=== PATIENT | male | born 1980 | race Caucasian/White ===

== ENCOUNTER 2021-06-20 12:44 | Emergency (ER) | payer OTHER, SELFPAY ==
[2021-06-20 12:56] VITALS: BP 134/98; PULSE 79; RESP 16; TEMP 36.4; O2SAT 98
--- NOTE | 2021-06-20 13:24 | ED.EAR ---
HPI - Ear Problem General Chief complaint: Ear Stated complaint: Ear Pain Time Seen by Provider: 06/20/21 13:18 Source: patient and RN notes reviewed Mode of arrival: ambulatory Limitations: no limitations History of Present Illness HPI Narrative: Patient presents today complaining of 2-day history of right ear pain radiating down the right neck. Denies decreased hearing or drainage. Currently rates his pain 5/10 and has been taking allergy medication without relief. Denies congestion, rhinorrhea, tooth pain. MD Complaint: ear pain Related Data Allergies Allergy/AdvReac Type Severity Reaction Status Date / Time No Known Allergies Allergy Unknown Unverified 06/20/21 13:08 SHOP AND SAVE HOT SAUCE Allergy Mild unknown Uncoded 06/20/21 13:08 Review of Systems Review of Systems: CONSTITUTIONAL: Denies body aches, fever, chills, or sweats. EYES: Denies visual changes, redness, or discharge. ENT: Denies rhinorrhea, congestion, sore throat. + Right ear pain CARDIOVASCULAR: Denies chest pain, palpitations, or edema. RESPIRATORY: Denies cough or dyspnea. GASTROINTESTINAL: Denies abdominal pain, nausea, vomiting, or diarrhea. GENITOURINARY: Denies dysuria or hematuria. SKIN: Denies rash, itching, or wounds. MUSCULOSKELETAL: Denies back pain, joint pain, or myalgia. NEUROLOGIC: Denies headache, numbness, tingling, or weakness. PSYCH: Denies depression or anxiety. [facility] Past Medical History Medical History (Updated 06/20/21 @ 13:31 by Jenny Gray, [facility], ) Asthma GERD (gastroesophageal reflux disease) Social History Social History Social History: Smoking status: Never smoker Second hand tobacco smoke exposure: No Alcohol intake: never Substance use: never Substance use type: does not use Gender identity (if verbalized by the patient): Male Comments At time of signature, I have reviewed and agree with nursing past medical, surgical, social and family history unless otherwise noted. Please see nursing chart for further information. There is no relevant family history pertinent to the presenting complaint Exam Narrative: GENERAL: Well-appearing, well-nourished, and in no acute distress. HEAD: Normocephalic, atraumatic. EYES: EOMI. No redness or drainage. Conjunctivae normal. ENT: Mucous membranes pink and moist. Nares clear. No rhinorrhea. Left TM normal. Right TM slightly erythematous and dull. Throat normal. Uvula midline. NECK: Normal AROM. Supple. No lymphadenopathy. CHEST: No respiratory distress. EXTREMITIES: Normal range of motion. No edema. SKIN: Warm, dry, no rash. Capillary refill normal. Normal skin turgor. NEURO: No focal deficits. Alert and oriented x3. Gait steady. PSYCH: Normal affect. No signs of depression or anxiety. Course Vital Signs Vital signs: Vital Signs Temperature 97.6 F 06/20/21 12:56 Pulse Rate 79 06/20/21 12:56 Respiratory Rate 16 06/20/21 12:56 Blood Pressure 134/98 H 06/20/21 12:56 Pulse Oximetry 98 06/20/21 12:56 Temperature 97.6 F 06/20/21 12:56 Pulse Rate 79 06/20/21 12:56 Respiratory Rate 16 06/20/21 12:56 Blood Pressure 134/98 H 06/20/21 12:56 Pulse Oximetry 98 06/20/21 12:56 Reviewed. Pt has been instructed to follow up with his PCP regarding his elevated blood pressure today. Medical Decision Making Differential Diagnosis Differential Diagnosis: Otitis media, otitis externa, ruptured TM, serous otitis, eustachian tube dysfunction Vital Signs Vital Signs: Vital Signs Temperature 97.6 F 06/20/21 12:56 Pulse Rate 79 06/20/21 12:56 Respiratory Rate 16 06/20/21 12:56 Blood Pressure 134/98 H 06/20/21 12:56 Pulse Oximetry 98 06/20/21 12:56 Temperature 97.6 F 06/20/21 12:56 Pulse Rate 79 06/20/21 12:56 Respiratory Rate 16 06/20/21 12:56 Blood Pressure 134/98 H 06/20/21 12:56 Pulse Oximetry 98 06/20/21 12:56
== END 2021-06-20 13:45 | disposition home or self-care (01) ==
PROVIDERS: Emergency Provider Nurse Practitioner; PCP Family Medicine
DX: H66.91 Otitis media, unspecified, right ear (principal); J45.909 Unspecified asthma, uncomplicated; K21.9 Gastro-esophageal reflux disease without esophagitis
CPT/HCPCS: 99213; G0463

== ENCOUNTER 2022-10-22 21:11 | Observation (INO) | payer OTHER, SELFPAY ==
--- NOTE | ~2022-10-22 | CT_ITS ---
EXAMINATION: CTA chest PE protocol DATE: 10/23/2022 01:11 INDICATION: Right chest and back pain. Dyspnea. TECHNIQUE: Computed tomography (CT) pulmonary angiogram of the chest was performed with 200 mL Omnipa que-350 intravenous contrast. Additional 3D reconstructions utilizing coronal maximum intensity proje ction (MIP) were performed. Automated exposure control and iterative reconstruction technique were em ployed. The dose-length product was 1162.45 mGy-cm. COMPARISON: None FINDINGS: Initial imaging is nondiagnostic due to combination of poor contrast opacification of the pulmonary a rteries and respiratory motion. The repeat imaging is diagnostic with good contrast opacification and minimal motion. This demonstrates pulmonary arterial filling defect in the lateral basilar segmental pulmonary artery of the right lower lobe which extends into a a few of the more peripheral subsegmen maría pulmonary arteries in the lateral basilar segment. Additional small pulmonary . Filling defect wi th focal mild dilation of the subsegmental pulmonary arteries in the posterior basilar segment of the left lower lobe. No other pulmonary arterial filling defects identified. Groundglass opacity and pat everett airspace opacities in the lateral basilar segment of the right lower lobe and posterior basilar s egment of the left lower lobe likely representing combinations of atelectasis and pulmonary infarcts. Remainder of the lungs are clear. No pleural effusion. Heart size is normal. No evident leftward dev iation of the ventricular septum to suggest right heart strain. No pericardial effusion. Thoracic aor ta is normal in caliber with no dissection. No pathologically enlarged thoracic lymphadenopathy. Bila teral mild gynecomastia. Small sliding-type hiatal hernia. Surgical clip along the gastric mesentery. Bones are unremarkable. IMPRESSION: 1. Pulmonary emboli still with relatively small clot burden but with likely associated small pulmonar y infarcts in the lateral basilar segment of the right lower lobe and posterior basilar segment of th e left lower lobe. Reviewed, dictated and finalized at location A. [employer] MANAGER IMPRESSION: 1. Pulmonary emboli still with relatively small clot burden but with likely ass ociated small pulmonary infarcts in the lateral basilar segment of the right lo wer lobe and posterior basilar segment of the left lower lobe.
--- NOTE | ~2022-10-22 | US_ITS ---
EXAMINATION: US venous doppler [facility] DATE: 10/23/2022 09:24 INDICATION: Pulmonary emboli TECHNIQUE: Grayscale ultrasound images without and with compression and Doppler ultrasound images of the bilateral lower extremity veins were obtained. COMPARISON: None. FINDINGS: The visualized portions of right common femoral vein, profunda (deep) femoral vein, femoral vein, pop liteal vein, posterior tibial veins, peroneal veins, gastrocnemius vein and greater saphenous vein ou tflow are patent. The visualized portions of left common femoral vein, profunda femoral vein, femoral vein, popliteal v ein, posterior tibial veins, peroneal veins, gastrocnemius vein and greater saphenous vein outflow ar e patent. IMPRESSION: 1. No deep venous thrombosis in either lower limb. Reviewed, dictated and finalized at location A. AGE COLLECTOR
[2022-10-22 21:14] VITALS: BP 152/107; PULSE 97; RESP 18; TEMP 36.6; O2SAT 99
--- NOTE | 2022-10-22 23:32 | PC.NURSE ---
pt to desk reporting difficulty breathing and L arm pain/numbness. pt speaking in short sentences and tachypneic. pt placed in a wheelchair and pulled into triage for VS. pt coached on breathing. ED Charge made aware and pt to go to rm 8.
[2022-10-22 23:33] VITALS: BP 150/106; PULSE 116; RESP 22; RESP 30; O2SAT 98
--- NOTE | 2022-10-22 23:39 | ECG_ITS ---
Measurements Intervals [place] Rate: 102 P: 21 [place]: 157 QRS: 7 QRSD: 85 T: 9 QT: 319 QTc: 416 Interpretive Statements SINUS TACHYCARDIA OTHERWISE WITHIN NORMAL LIMITS NO PREVIOUS ECG AVAILABLE FOR COMPARISON Electronically Signed On 10-23-2022 8:35:02 SAMPLE FINISHER by José Manuel Dunn M.D.
[2022-10-22 23:40] VITALS: PULSE 108; RESP 26; O2SAT 99
[2022-10-22 23:45] VITALS: PULSE 101; RESP 35; O2SAT 100
[2022-10-23] VITALS (25 sets, daily range): BP systolic 125–143; BP diastolic 76–95; PULSE 82–109; RESP 15–28; TEMP 36.3–37; O2SAT 94–100
[2022-10-23 00:15] LABS: Basophils Absolute Auto 0.1 K/mm3 (0.0-0.1); Basophils Percent Auto 0.4 % (0.2-1.2); Eosinophils Absolute Auto 0.4 K/mm3 (0-0.3); Eosinophils Percent Auto 2.4 % (0-4.4); Hematocrit 40.2 % (42.0-52.0); Immature Granulocyte Absolute 0.05 K/mm3 (0.00-0.031); Immature Granulocyte Percent A 0.3 % (0-0.5); Lymphocytes Absolute Auto 2.13 K/mm3 (0.9-3.2); Lymphocytes Percent Auto 13.7 % (18.3-44.2); Mean Corpuscular HGB Conc 34.8 g/dl (32-36); Mean Corpuscular Hemoglobin 31.9 pg (26-34); Mean Corpuscular Volume 91.6 fl (80-100); Mean Platelet Volume 10.6 fl (7.4-10.4); Monocytes Absolute Auto 1.4 K/mm3 (0.1-0.6); Monocytes Percent Auto 8.7 % (2.6-8.5); Neutrophils Absolute Auto 11.6 K/mm3 (1.3-6.7); Neutrophils Percent Auto 74.5 % (45.5-73.1); Platelet Count Result 182 k/mm3 (150-375); Red Blood Count 4.39 M/mm3 (4.6-6.20); Red Cell Distribution Width 12.4 % (11.5-14.5); White Blood Count 15.6 K/mm3 (4.5-10.0)
[2022-10-23 00:24] LABS: Anion Gap 10 mmol/L (8-16); Blood Urea Nitrogen 13 mg/dL (9-20); Calcium 9.7 mg/dL (8.4-10.2); Carbon Dioxide 25 mmol/L (22-30); Chloride 100 mmol/L (98-107); Estimated CRCL calculation 86 ml/min; Estimated Glomerular Filt Rate > 60; Glucose 119 mg/dL (65-110); Sodium 135 mmol/L (137-145)
[2022-10-23 00:26] LABS: Prothrombin Time 13.2 Seconds (11.1-14.7)
[2022-10-23 00:27] LABS: Partial Thromboplastin Time 26.2 SECONDS (22.3-36.8)
[2022-10-23] MEDS: diazePAM INJ (*CRX) 10 MG/2 ML SYRINGE 5 MG IV PUSH (00:37)
[2022-10-23] MEDS: SODIUM CHLORIDE 0.9% IV 1,000 ML 999 ML IV CONT (00:37)
[2022-10-23] MEDS: KETOROLAC 30 MG/ML VIAL (*BKC) IV PUSH (00:38)
--- NOTE | 2022-10-23 01:33 | ED.SOB ---
HPI - SOB/Dyspnea General Chief Complaint: Shortness of Breath/Dyspnea Stated Complaint: R flank pain Time Seen by Provider: 10/22/22 23:34 History of Present Illness HPI Narrative: Patient is a 42-year-old male who presents ER with right-sided back pain. Ongoing since waking up on 08/22/2022. Pain is worse with a deep breath and with some movements. No alleviating factors. No exertional dyspnea no chest pain. Denies lower extremity swelling or calf cramping. No recent long distance travel or surgery/injury. While in the waiting room patient had increased shortness of breath and reported that he was tingling in his left arm. Related Data Allergies Allergy/AdvReac Type Severity Reaction Status Date / Time No Known Allergies Allergy Unknown Unverified 09/30/22 08:44 SHOP AND SAVE HOT SAUCE Allergy Mild unknown Uncoded 09/30/22 08:44 Review of Systems Review of Systems: All systems reviewed & are unremarkable except as noted in HPI and below Constitutional: Constitutional: Denies chills, Denies fatigue and Denies fever(s) ENT: Denies nasal congestion and Denies sore throat Cardiovascular: Cardiovascular: Denies chest pain, Denies rapid heart rate and Denies radiating jaw, neck or arm pain Respiratory: Respiratory: Denies cough and Denies dyspnea Comments: Pain with deep Gastrointestinal: Gastrointestinal: Denies abdominal pain, Denies nausea and Denies vomiting Musculoskeletal: Musculoskeletal: Reports back pain Neurologic: Denies focal weakness and Reports numbness PMFSH Past Medical History Medical History (Updated 10/23/22 @ 02:48 by Tang Regalado MD) Asthma GERD (gastroesophageal reflux disease) Surgical History Surgical History (Updated 10/23/22 @ 02:48 by Tang Regalado MD) No pertinent past surgical history Social History Social History (System 09/30/22 @ 08:44 by Valeriy Warner) Social History: Smoking status: Never smoker Second hand tobacco smoke exposure: No Smoking end date: 11/14/14 Alcohol intake: never Substance use: never Substance use type: does not use Gender identity (if verbalized by the patient): Male Sexual Orientation (if Verbalized by the Patient): Straight or Heterosexual Exam Narrative: GENERAL: Anxious-appearing, well-nourished, and in mild distress. HEAD: Normocephalic, atraumatic. EYES: PERRL and EOMI. NECK: Supple. CHEST: Clear to auscultation. Tachypnea noted, pain with deep breath. HEART: Tachycardic regular. Normal peripheral pulses. ABDOMEN: Soft, nontender, nondistended. EXTREMITIES: Normal range of motion. No edema. Negative Homans' sign bilaterally. SKIN: Warm, dry, no rash. NEURO: Alert and oriented x3. PSYCH: Normal mood and affect. Course Course Emergency Course: Patient informed of results. We will anticoagulate with Xarelto. Discussed with hospitalist admission for observation. Patient more comfortable at this time. He reports that he had COVID a couple months ago. He also reports that his mother has recurrent blood clots and he thinks she has a genetic condition that he is unsure which 1. Vital Signs Vital signs: Vital Signs Temperature 97.8 F 10/22/22 21:14 Pulse Rate 97 10/22/22 21:14 Respiratory Rate 18 10/22/22 21:14 Blood Pressure 152/107 H 10/22/22 21:14 Pulse Oximetry 99 10/22/22 21:14 Oxygen Delivery Room Air 10/22/22 21:14 Temperature 97.8 F 10/22/22 21:14 Pulse Rate 103 H 10/23/22 00:13 Respiratory Rate 22 H 10/22/22 23:33 Blood Pressure 150/106 H 10/22/22 23:33 Pulse Oximetry 98 10/22/22 23:33 Oxygen Delivery Room Air 10/22/22 23:36 MDM - SOB/Dyspnea Lab Data 10/23/22 00:10 10/23/22 00:10 Labs: Lab Results 10/23/22 10/23/22 10/23/22 Range/Units 00:10 00:10 00:10 WBC 15.6 H (4.5-10.0) K/mm3 RBC 4.39 L (4.6-6.20) M/mm3 Hgb 14.0 (14.0-18.0) g/dL Hct 40.2 L (42.0-52.0) % MCV 91.6 (80-100
[2022-10-23] MEDS: RIVAROXABAN 15 MG TABLET PO ×2 (02:50→17:50)
[2022-10-23 03:00] LABS: Influenza A QL RT-PCR Negative (Negative); Influenza B QL RT-PCR Negative (Negative); SARS-CoV-2 RNA PCR Positive
--- NOTE | 2022-10-23 04:52 | PC.NURSE ---
This patient, Garo Andrew, was admitted to Medical Room 344-01. Patient/family oriented to hospital policies and general routines including ID bracelet, bed and alarms, visiting hours, pain management, procedures, bathroom and other care routines, personal items, smoking policy, room service/diet, and visiting hours. Information on how to activate the Rapid Response Team has been discussed. Patient/Family are encouraged to report perceived risks to care and to ask questions if they do not understand what they are told or what they should do.
--- NOTE | 2022-10-23 08:55 | PM.IMHP ---
H&P: HPI History of Present Illness Date/Time: 10/23/22 08:55 [facility] Past Medical History Medical History (Updated 10/23/22 @ 09:01 by Ann Catherine PA-C) Asthma GERD (gastroesophageal reflux disease) Surgical History Surgical History (Updated 10/23/22 @ 02:48 by Tang Regalado MD) No pertinent past surgical history Social History Social History (System 09/30/22 @ 08:44 by Valeriy Warner) Social History: Smoking packs per day: 1 Smoking cigarettes per day: 20.0 Years smoked: 10 Smoking pack-years: 10.00 Smoking status: Former smoker Tobacco type: cigarettes Second hand tobacco smoke exposure: No Smoking end date: 11/14/14 Alcohol intake: never Substance use: never Substance use type: does not use Lack of Transportation: No Lack of Food: Never True Current Housing: I Have Housing Concerned About Future Housing: No Difficulty Paying Gas/Electric Bills: Decline to Answer Difficulty Paying for Meds: Decline to Answer Currently Unemployed: Decline to Answer Education: Bachelor's Degree Difficulty w/ Childcare or Family Care: No Gender identity (if verbalized by the patient): Male Sexual Orientation (if Verbalized by the Patient): Straight or Heterosexual Spiritual care concerns: No Meds Home Medications and Allergies Home Medications Medication Instructions Recorded Confirmed Type albuterol sulfate 90 mcg/actuation 1 puff inhalation Q4H PRN 11/05/21 10/23/22 Rx aerosol inhaler shortness of breath or wheezing #8 grams mometasone-formoterol HFA 200 2 puff inhalation BID 10/23/22 10/23/22 History mcg-5 mcg/actuation aerosol inhaler (Dulera) Allergies Allergy/AdvReac Type Severity Reaction Status Date / Time No Known Allergies Allergy Unknown Unverified 09/30/22 08:44 SHOP AND SAVE HOT SAUCE Allergy Mild unknown Uncoded 09/30/22 08:44 Vital Signs Vital Signs - 24 hr 10/22/22 21:14 10/22/22 23:33 10/22/22 23:33 Temperature 97.8 F Pulse Rate 97 116 H Respiratory Rate 18 30 H 22 H Blood Pressure 152/107 H 150/106 H Pulse Oximetry 99 98 Oxygen Delivery Room Air 10/22/22 23:36 10/23/22 00:13 10/22/22 23:40 Temperature Pulse Rate 103 H 108 H Respiratory Rate 26 H Blood Pressure Pulse Oximetry 99 Oxygen Delivery Room Air 10/22/22 23:45 10/23/22 00:00 10/23/22 00:01 Temperature Pulse Rate 101 H 96 100 Respiratory Rate 35 H 28 H 16 Blood Pressure 138/95 H Pulse Oximetry 100 99 Oxygen Delivery 10/23/22 00:15 10/23/22 00:30 10/23/22 01:07 Temperature Pulse Rate 102 H 102 H 109 H Respiratory Rate 25 H 28 H 23 H Blood Pressure 134/93 H Pulse Oximetry 97 96 97 Oxygen Delivery 10/23/22 01:08 10/23/22 01:15 10/23/22 01:30 Temperature Pulse Rate 105 H 100 99 Respiratory Rate 28 H 15 25 H Blood Pressure 143/94 H Pulse Oximetry 99 96 94 Oxygen Delivery 10/23/22 01:31 10/23/22 02:35 10/23/22 02:45 Temperature Pulse Rate 98 104 H 102 H Respiratory Rate 28 H 21 H 21 H Blood Pressure 128/79 Pulse Oximetry 96 100 99 Oxygen Delivery 10/23/22 04:14 10/23/22 03:04 10/23/22 03:15 Temperature 98.2 F Pulse Rate 104 H 105 H 99 Respiratory Rate 20 23 H 22 H Blood Pressure 132/79 Pulse Oximetry 96 98 98 Oxygen Delivery 10/23/22 03:35 10/23/22 03:45 10/23/22 04:45 Temperature Pulse Rate 107 H 101 H 93 Respiratory Rate 15 24 H Blood Pressure Pulse Oximetry 98 98 Oxygen Delivery 10/23/22 04:49 Temperature Pulse Rate Respiratory Rate Blood Pressure Pulse Oximetry Oxygen Delivery Room Air H&P: Results Labs Labs: Short CBC 10/23/22 Range/Units 00:10 WBC 15.6 H (4.5-10.0) K/mm3 Hgb 14.0 (14.0-18.0) g/dL Hct 40.2 L (42.0-52.0) % Plt Count 182 (150-375) k/mm3 BMP 10/23/22 00:10 Sodium 135 L Potassium 4.0 Chloride 100 Carbon Dioxide 25 BUN 13 Creatinine 1.10 Gluc
[2022-10-23] MEDS: HYDROcodone/acetaminophen (*CRX) 5-325 MG TABLET 1 TAB PO (10:22)
--- NOTE | 2022-10-23 13:25 | PM.IMHP ---
H&P: HPI History of Present Illness Date/Time: 10/23/22 13:25 Chief Complaint: Pulmonary embolism Narrative: 42-year-old male with a history have asthma presents to the ER on 10/23/2022 with a chief complaint of right-sided lateral chest/back pain. Patient described the pain as a pressure/stabbing pain. Pain was worsened by deep inspiration and accompanied by shortness of breath. Patient stated that this pain had started the morning of 10/22/2022 and had progressively gotten worse throughout the day. On arrival patient underwent CTA chest revealing pulmonary emboli with relatively small clot burden with likely associated small pulmonary infarcts. Venous Doppler of the bilateral lower extremities revealed no DVT. Patient was started on Xarelto and admitted. Upon admission patient's COVID test was positive. Patient put under contact precautions. Patient states that he is unaware of any sick contacts and feels just fine. Does state that he has a mild nonproductive cough that started 2 days ago. Patient denies chest pain, body aches, fever, nausea, vomiting and diarrhea. Patient started on Xarelto 15 mg b.i.d., Zofran, and analgesics for pain. Patient not requiring any O2 and maintaining saturation of 96% on room air. Patient's vital signs are stable. Review of Systems Review of Systems: All systems reviewed & are unremarkable except as noted in HPI and below PMFSH Past Medical History Medical History Asthma GERD (gastroesophageal reflux disease) Surgical History Surgical History No pertinent past surgical history Family History Family History (Updated 10/23/22 @ 14:02 by Ann Catherine PA-C) Mother Factor 5 Leiden mutation, heterozygous Father Lung cancer Social History Social History (Updated 10/23/22 @ 14:04 by Ann Catherine PA-C) Social History: Patient states that he lives at home with his ,2 kids, dog, and cat. Patient denies smoking, alcohol intake and drug use. Patient works as a [employer] company and works from home. Smoking packs per day: 1 Smoking cigarettes per day: 20.0 Years smoked: 10 Smoking pack-years: 10.00 Smoking status: Former smoker Tobacco type: cigarettes Second hand tobacco smoke exposure: No Smoking end date: 11/14/14 Alcohol intake: never Substance use: never Substance use type: does not use Lack of Transportation: No Lack of Food: Never True Current Housing: I Have Housing Concerned About Future Housing: No Difficulty Paying Gas/Electric Bills: Decline to Answer Difficulty Paying for Meds: Decline to Answer Currently Unemployed: Decline to Answer Education: Bachelor's Degree Difficulty w/ Childcare or Family Care: No Gender identity (if verbalized by the patient): Male Sexual Orientation (if Verbalized by the Patient): Straight or Heterosexual Spiritual care concerns: No Meds Home Medications and Allergies Home Medications Medication Instructions Recorded Confirmed Type albuterol sulfate 90 mcg/actuation 1 puff inhalation Q4H PRN 11/05/21 10/23/22 Rx aerosol inhaler shortness of breath or wheezing #8 grams mometasone-formoterol HFA 200 2 puff inhalation BID 10/23/22 10/23/22 History mcg-5 mcg/actuation aerosol inhaler (Dulera) Allergies Allergy/AdvReac Type Severity Reaction Status Date / Time No Known Allergies Allergy Unknown Unverified 09/30/22 08:44 SHOP AND SAVE HOT SAUCE Allergy Mild unknown Uncoded 09/30/22 08:44 Vital Signs Vital Signs - 24 hr 10/22/22 21:14 10/22/22 23:33 10/22/22 23:33 Temperature 97.8 F Pulse Rate 97 116 H Respiratory Rate 18 30 H 22 H Blood Pressure 152/107 H 150/106 H Pulse Oximetry 99 98 Oxygen Delivery Room Air 10/22/22 23:36 10/23/22 00:13 10/22/22 23:40 Temperature Pulse Rate 103 H 108 H Respiratory Rate 26 H Blood
[2022-10-24] VITALS (7 sets, daily range): BP systolic 120; BP diastolic 84; PULSE 86–113; RESP 14–18; TEMP 36.3–36.5; O2SAT 97–100
[2022-10-24 06:14] LABS: Basophils Percent Auto 0.4 % (0.2-1.2); Eosinophils Absolute Auto 0.4 K/mm3 (0-0.3); Eosinophils Percent Auto 3.8 % (0-4.4); Hematocrit 37.4 % (42.0-52.0); Hemoglobin 12.6 g/dL (14.0-18.0); Immature Granulocyte Absolute 0.05 K/mm3 (0.00-0.031); Immature Granulocyte Percent A 0.5 % (0-0.5); Lymphocytes Absolute Auto 2.35 K/mm3 (0.9-3.2); Lymphocytes Percent Auto 23.6 % (18.3-44.2); Mean Corpuscular HGB Conc 33.7 g/dl (32-36); Mean Corpuscular Hemoglobin 31.5 pg (26-34); Mean Corpuscular Volume 93.5 fl (80-100); Mean Platelet Volume 10.4 fl (7.4-10.4); Monocytes Percent Auto 10.5 % (2.6-8.5); Neutrophils Absolute Auto 6.1 K/mm3 (1.3-6.7); Neutrophils Percent Auto 61.2 % (45.5-73.1); Platelet Count Result 187 k/mm3 (150-375); Red Cell Distribution Width 12.3 % (11.5-14.5); White Blood Count 9.9 K/mm3 (4.5-10.0)
[2022-10-24 06:28] LABS: Alanine Aminotransferase 30 U/L (6-50); Albumin Level 3.9 g/dL (3.5-5.1); Alkaline Phosphatase 67 U/L (38-126); Anion Gap 6 mmol/L (8-16); Aspartate Amino Transferase 27 U/L (17-59); Bilirubin,Total 0.5 mg/dL (0.2-1.3); Blood Urea Nitrogen 10 mg/dL (9-20); Calcium 8.7 mg/dL (8.4-10.2); Carbon Dioxide 24 mmol/L (22-30); Chloride 106 mmol/L (98-107); Estimated CRCL calculation 104 ml/min; Estimated Glomerular Filt Rate > 60; Glucose 102 mg/dL (65-110); Potassium 3.6 mmol/L (3.4-5.0); Sodium 136 mmol/L (137-145)
[2022-10-24] MEDS: RIVAROXABAN 15 MG TABLET PO (08:39)
[2022-10-24] MEDS: ACETAMINOPHEN 325 MG TABLET 650 MG PO (08:41)
--- NOTE | 2022-10-24 09:48 | PM.DS ---
DS: Admitting Diagnosis Discharge Date 10/24/2022 Admitting Diagnosis Pulmonary emboli, COVID DS: Discharge Diagnosis Discharge Diagnosis (1) Pulmonary embolism: Code(s): I26.99 - Other pulmonary embolism without acute cor pulmonale Status: Acute (2) COVID-19: Code(s): U07.1 - COVID-19 Status: Acute (3) Asthma: Code(s): J45.909 - Unspecified asthma, uncomplicated Status: Acute DS: Summary Hospital Course Reason for hospitalization: Pulmonary embolism, COVID Hospital Course: 42-year-old male with a history have asthma presents to the ER on 10/23/2022 with a chief complaint of right-sided lateral chest/back pain.? Patient described the pain as a pressure/stabbing pain.? Pain was worsened by deep inspiration and accompanied by shortness of breath.? Patient stated that this pain had started the morning of 10/22/2022 and had progressively gotten worse throughout the day.? On arrival patient underwent CTA chest revealing pulmonary emboli with relatively small clot burden with likely associated small pulmonary infarcts.? Venous Doppler of the bilateral lower extremities revealed no DVT.? Patient was started on Xarelto and admitted.? Upon admission patient's COVID test was positive.? Patient put under contact precautions.? Patient states that he is unaware of any sick contacts and feels just fine.? Does state that he has a mild nonproductive cough that started 2 days ago.? Patient denies chest pain, body aches, fever, nausea, vomiting and diarrhea.? Patient started on Xarelto 15 mg b.i.d., Zofran, and analgesics for pain.? Patient not requiring any O2 and maintaining saturation of 96% on room air.? Patient's vital signs are stable. Patient's white count within normal limits on 10/24/2022. Coagulation panel ordered advised patient to follow with Hematology on discharge. Coagulation panel ordered due to patient's mother having Factor 5 Leiden. Advice patient to quarantine for total of 5 days. Continue anticoagulation medication and follow-up with primary care. Echocardiogram originally ordered an within canceled due to patient being hemodynamically stable and stating that he is comfortable going home. Status at Discharge Overall status at discharge: patient is progressing back to baseline Time Spent with Patient Time attestation: Total time spent providing and/or coordinating discharge services: Time spent: Greater than 30 minutes Exam Narrative: GENERAL: Comfortable, no acute distress HENMT: moist mucous membranes, patient wears glasses EYES: EOM intact b/l NECK: no lymphadenopathy RESPIRATORY: clear to auscultation CARDIO: RRR GI: soft, nontender, bowel sounds present SKIN: no rashes EXTREMITIES: no edema, calf redness or tenderness DS: Data Data Completed and Pending Labs on day of discharge: Labs from last 24 hours 10/24/22 10/24/22 05:56 05:56 WBC 9.9 RBC 4.00 L Hgb 12.6 L Hct 37.4 L MCV 93.5 MCH 31.5 MCHC 33.7 RDW 12.3 Plt Count 187 MPV 10.4 Immature Gran % (Auto) 0.5 Neut % (Auto) 61.2 Lymph % (Auto) 23.6 [place] % (Auto) 10.5 H Eos % (Auto) 3.8 Baso % (Auto) 0.4 Lymph # (Auto) 2.35 [place] # (Auto) 1.0 H Eos # (Auto) 0.4 H Baso # (Auto) 0.0 Abs Immat Gran (auto) 0.05 H Absolute Neuts (auto) 6.1 Absolute Nucleated RBC 0.0 Nucleated RBC % 0.0 Sodium 136 L Potassium 3.6 Chloride 106 Carbon Dioxide 24 Anion Gap 6 L BUN 10 Creatinine 0.90 Estim Creat Clear Calc 104 Estimated GFR > 60 Glucose 102 Calcium 8.7 Total Bilirubin 0.5 AST 27 ALT 30 Alkaline Phosphatase 67 Total Protein 7.0 Albumin 3.9 Discharge Plan Discharge Attending physician on discharge: Rodriguez Fox Discharging Clinician: Ann Catherine Patient Disposition: Home, Self-Care Activity: as tolerated Diet: as tolerated Discharge Instructions: Follow-up with hematology on coagulation panel. C
[2022-10-24 10:51] LABS: INR 1.4; Prothrombin Time 16.6 Seconds (11.1-14.7)
[2022-10-24 10:53] LABS: Partial Thromboplastin Time 32.7 SECONDS (22.3-36.8)
[2022-10-27 04:41] LABS: Anti Cardio Antibody IgM <2.0 MPL-U/mL (<20.0); Anti Cardiolipin Antibody IgA <2.0 APL-U/mL (<20.0); Anti Cardiolipin Antibody IgG <2.0 GPL-U/mL (<20.0)
[2022-10-28 11:40] LABS: Protein C Antigen 83 % normal (70-140)
== END 2022-10-24 16:13 | disposition home or self-care (01) ==
LOC: ANHED 10-23 02:50 → ANH3MED 10-23 11:11
PROVIDERS: Internal Medicine Critical Care Medicine; Admitting Provider Internal Medicine; Emergency Provider Emergency Medicine; PCP Family Medicine; Visit Provider Internal Medicine
DX: I26.99 Other pulmonary embolism without acute cor pulmonale (principal); U07.1 COVID-19; J45.909 Unspecified asthma, uncomplicated; K21.9 Gastro-esophageal reflux disease without esophagitis; R06.82 Tachypnea, not elsewhere classified; R00.0 Tachycardia, unspecified; Z20.822 Contact with and (suspected) exposure to COVID-19; Z86.16 Personal history of COVID-19; Z79.51 Long term (current) use of inhaled steroids
CPT/HCPCS: 36415; 71275; 80048; 80053; 81241; 85025; 85302; 85303; 85306; 85610; 85730; 86147; 87636; 93005; 93970; 96361; 96374; 96375; 99285; A9270; G0378; J1885; J3360; J7030; Q9967

== ENCOUNTER 2023-06-26 17:54 | Emergency (ER) | payer OTHER, SELFPAY ==
--- NOTE | 2023-06-26 17:57 | ED.SKABFB ---
HPI - Skin/Abscess/Foreign Bdy General Chief complaint: Skin/Abscess/Foreign Body Stated complaint: skin rash Time Seen by Provider: 06/26/23 18:33 Source: patient and RN notes reviewed Mode of arrival: ambulatory Limitations: no limitations History of Present Illness HPI narrative: 43-year-old male presents with concern for poison mike. Reports symptoms started on . Reports itchy rash on hands, arms, legs, face. He reports he has used Benadryl and calamine lotion without relief. He denies swollen lips, swollen tongue, trouble breathing MD complaint: rash Related Data Allergies Allergy/AdvReac Type Severity Reaction Status Date / Time No Known Allergies Allergy Unknown Verified 06/26/23 18:04 SHOP AND SAVE HOT SAUCE Allergy Mild unknown Uncoded 06/26/23 18:04 Review of Systems Review of Systems: CONSTITUTIONAL: Denies malaise, chills, sweats, or fever. EYES: Denies redness, or discharge. ENT: Denies rhinorrhea, congestion, swollen lips, swollen tongue CARDIOVASCULAR: Denies chest pain, palpitations, or edema. RESPIRATORY: Denies cough or dyspnea. GASTROINTESTINAL: Denies abdominal pain, nausea, vomiting SKIN: Reports itchy rash on his arms, legs, face MUSCULOSKELETAL: Denies joint pain or myalgia. NEUROLOGIC: Denies headache. All systems reviewed & are unremarkable except as noted in HPI and below PMFSH Past Medical History Medical History Asthma GERD (gastroesophageal reflux disease) Surgical History Surgical History No pertinent past surgical history Family History Family History Mother Factor 5 Leiden mutation, heterozygous Father Lung cancer Social History Social History Social History: Patient states that he lives at home with his ,2 kids, dog, and cat. Patient denies smoking, alcohol intake and drug use. Patient works as a [employer] company and works from home. Smoking packs per day: 1 Smoking cigarettes per day: 20.0 Years smoked: 10 Smoking pack-years: 10.00 Smoking status: Former smoker Tobacco type: cigarettes Second hand tobacco smoke exposure: No Smoking end date: 11/14/14 Alcohol intake: never Substance use: never Substance use type: does not use Lack of Transportation: No Lack of Food: Never True Current Housing: I Have Housing Concerned About Future Housing: No Difficulty Paying Gas/Electric Bills: Decline to Answer Difficulty Paying for Meds: Decline to Answer Currently Unemployed: Decline to Answer Education: Bachelor's Degree Difficulty w/ Childcare or Family Care: No Living arrangements: with family Occupation/Education: occupation Gender identity (if verbalized by the patient): Male Sexual Orientation (if Verbalized by the Patient): Straight or Heterosexual Spiritual care concerns: No Comments At time of signature, agree with nursing past medical, surgical, social and family history. There is no relevant family history pertinent to the presenting complaint Exam Narrative: GENERAL: Well-appearing, well-nourished, and in no acute distress. HEAD: Normocephalic, atraumatic. EYES: PERRLA, conjunctivae clear, and EOMI. ENT: Mucous membranes moist. Oropharynx without edema, erythema or lesions. NECK: Supple. No lymphadenopathy CHEST: Clear to auscultation. No respiratory distress. HEART: Regular rate and rhythm. SKIN: Warm, dry. Erythematous patches of papular rash noted to the left hand, legs, face NEURO: Alert and oriented x3. PSYCH: Normal mood and affect Course Course Emergency Course: Patient is aware of diagnosis, understands and agrees to treatment plan. Anticipatory guidance given. Patient agrees to follow-up as directed and is aware of reasons to seek care at the emergency
[2023-06-26 18:06] VITALS: BP 139/98; PULSE 85; RESP 16; TEMP 36.8; O2SAT 99
[2023-06-26] MEDS: predniSONE 20 MG TABLET 40 MG PO (18:49)
== END 2023-06-26 18:53 | disposition home or self-care (01) ==
PROVIDERS: Emergency Provider Nurse Practitioner; PCP Family Medicine
DX: L25.9 Unspecified contact dermatitis, unspecified cause (principal); Z87.891 Personal history of nicotine dependence; J45.909 Unspecified asthma, uncomplicated; K21.9 Gastro-esophageal reflux disease without esophagitis
CPT/HCPCS: 99213; G0463; J7512

== ENCOUNTER 2025-10-26 08:39 | Day surgery (SDC) | payer OTHER, SELFPAY ==
[2025-10-16 11:18] VITALS: BMI 32.2
[2025-10-26 08:56] VITALS: BP 156/116; PULSE 87; RESP 18; TEMP 37.2; O2SAT 98
[2025-10-26] MEDS: LACTATED RINGERS 1,000 ML 150 ML IV CONT (09:04)
--- NOTE | 2025-10-26 10:13 | P.HP_ITS ---
H&P: HPI History of Present Illness Date/Time: 10/26/25 10:13 Chief Complaint: Screening colonoscopy Narrative: This is the patient's first colonoscopy. There are no GI symptoms and there is no family history of colorectal cancer. Review of Systems Review of Systems: All systems reviewed & are unremarkable except as noted in HPI and below [facility] Past Medical History Medical History (Updated 10/26/25 @ 10:13 by Jace Tafoya MD) FAWAD (generalized anxiety disorder) Asthma GERD (gastroesophageal reflux disease) Surgical History Surgical History No pertinent past surgical history Family History Family History Mother Factor 5 Leiden mutation, heterozygous Father Lung cancer Social History Social History Social History: Patient states that he lives at home with his ,2 kids, dog, and cat. Patient denies smoking, alcohol intake and drug use. Patient works as a [employer] company and works from home. Smoking packs per day: 1 Smoking cigarettes per day: 20.0 Years smoked: 10 Smoking pack-years: 10.00 Smoking status: Former smoker Tobacco type: cigarettes Second hand tobacco smoke exposure: No Smoking end date: 11/14/09 Alcohol intake: never Substance use: never Substance use type: does not use Lack of Transportation: No Lack of Food: Never True Current Housing: I Have Housing Concerned About Future Housing: No Difficulty Paying Gas/Electric Bills: Decline to Answer Difficulty Paying for Meds: Decline to Answer Currently Unemployed: Decline to Answer Education: Bachelor's Degree Difficulty w/ Childcare or Family Care: No Living arrangements: with family Occupation/Education: occupation Gender identity (if verbalized by the patient): Male Sexual Orientation (if Verbalized by the Patient): Straight or Heterosexual Spiritual care concerns: No Meds Home Medications and Allergies Home Medications ?Medication ?Instructions ?Recorded ?Confirmed ?Type albuterol sulfate 90 mcg/actuation 1 puff inhalation Q 4H PRN 10/01/25 10/26/25 Rx aerosol inhaler shortness of breath or wheez ing #8 grams escitalopram oxalate 10 mg tablet 10 mg PO DAILY #30 t abs 10/01/25 10/26/25 Rx (Lexapro) fluticasone furoate 100 1 inh inhalation DAILY #60 e a 10/01/25 10/26/25 Rx mcg-vilanterol 25 mcg/dose inhalation powder (Breo Ellipta) calcium carbonate (Tums) 200 mg PO DAILY PRN dyspepsi a 10/16/25 10/26/25 History famotidine 20 mg tablet (Acid 20 mg PO DAILY PRN REFLU X 10/16/25 10/26/25 History Controller) minoxidil 2.5 mg tablet 2.5 mg PO DAILY 10/16/25 History semaglutide (weight loss) 0.5 0.5 mg subcut WEEKLY 02/0510/26/25 History mg/0.5 mL subcutaneous pen injector Allergies Allergy/AdvReac Type Severity Reaction Status Date / Time No Known Allergies Allergy Unknown Verified 10/26/25 08:54 Vital Signs Vital Signs - 24 hr 10/26/25 08:56 Temperature 99 F Pulse Rate 87 Respiratory Rate 18 Blood Pressure 156/116 H Pulse Oximetry 98 Oxygen Delivery Room Air Exam Const: General: cooperative and healthy appearing Resp: Effort & Inspection: normal respiratory effort and able to speak in complete sentences Auscultation: clear to auscultation bilaterally Cardio: Rate: regular rate Rhythm: regular rhythm GI: Inspection: normal to inspection GI Palp: No No hepatosplenomegaly present Auscultation: normal bowel sounds Rectal Exam: deferred Skin: General skin exam: normal color Psych: Appearance: grossly normal Mental Status: mental status grossly normal Assessment and Plan Assessment and plan (1) Encounter for screening colonoscopy: Code(s): Z12.11 - Encounter for screening for malignant neoplasm of colon Status: Acute Assessment and Plan: The patient is deemed a good candidate for the procedure. Consent signed. Will proceed. Prior Studies I have reviewed the following patient records and this information was taken into consideration when formulating the assessment and plan.: previous labs, previous ER visits, previous hospitalizations and previous clinic visits
--- NOTE | 2025-10-26 10:13 | WPDANESEPPF ---
Anes - Initial Pre Proc Eval Procedure: Operation Date: 10/26/25 10:00 Proposed Procedures p Screening Colonoscopy - Jace Tafoya MD Date/Time: 10/26/25 10:13 Surgeon: Jace Tafoya MD Pre Op Diagnosis: Screening Patient Data Age: 45 Gender: M Height: 1.75 m Weight: 97.8 kg Last Vital Signs Temp 37.2 C 10/26/25 08:56 Pulse 87 10/26/25 08:56 Resp 18 10/26/25 08:56 BP 156/116 H 10/26/25 08:56 Pulse Ox 98 10/26/25 08:56 O2 Del Method Room Air 10/26/25 08:56 Allergies Allergy/AdvReac Type Severity Reaction Status Date / Time No Known Allergies Allergy Unknown Verified 10/26/25 08:54 Home Medications ?Medication ?Instructions ?Recorded ?Confirmed ?Type albuterol sulfate 90 mcg/actuation 1 puff inhalation Q4H PRN 10/01/25 10/26/25 Rx aerosol inhaler shortness of breath or wheezing #8 grams escitalopram oxalate 10 mg tablet 10 mg PO DAILY #30 tabs 10/01/25 10/26/25 Rx (Lexapro) fluticasone furoate 100 1 inh inhalation DAILY #60 ea 10/01/25 10/26/25 Rx mcg-vilanterol 25 mcg/dose inhalation powder (Breo Ellipta) calcium carbonate (Tums) 200 mg PO DAILY PRN dyspepsia 10/16/25 10/26/25 History famotidine 20 mg tablet (Acid 20 mg PO DAILY PRN REFLUX 10/16/25 10/26/25 History Controller) minoxidil 2.5 mg tablet 2.5 mg PO DAILY 10/16/25 10/26/25 History semaglutide (weight loss) 0.5 0.5 mg subcut WEEKLY 10/16/25 10/26/25 History mg/0.5 mL subcutaneous pen injector Patient hx anesthesia problems: none Family hx anesthesia problems: none Results Review: All pre-operative results and documents have been reviewed as part of the pre-operative evaluation. [facility] Past Medical History Medical History (Updated 10/01/25 @ 13:44 by Philip Lutz MD) FAWAD (generalized anxiety disorder) Asthma GERD (gastroesophageal reflux disease) Surgical History Surgical History No pertinent past surgical history Family History Family History Mother Factor 5 Leiden mutation, heterozygous Father Lung cancer Social History Social History Social History: Patient states that he lives at home with his ,2 kids, dog, and cat. Patient denies smoking, alcohol intake and drug use. Patient works as a [employer] company and works from home. Smoking packs per day: 1 Smoking cigarettes per day: 20.0 Years smoked: 10 Smoking pack-years: 10.00 Smoking status: Former smoker Tobacco type: cigarettes Second hand tobacco smoke exposure: No Smoking end date: 11/14/09 Alcohol intake: never Substance use: never Substance use type: does not use Lack of Transportation: No Lack of Food: Never True Current Housing: I Have Housing Concerned About Future Housing: No Difficulty Paying Gas/Electric Bills: Decline to Answer Difficulty Paying for Meds: Decline to Answer Currently Unemployed: Decline to Answer Education: Bachelor's Degree Difficulty w/ Childcare or Family Care: No Living arrangements: with family Occupation/Education: occupation Gender identity (if verbalized by the patient): Male Sexual Orientation (if Verbalized by the Patient): Straight or Heterosexual Spiritual care concerns: No Anes - Eval Final PreProcedure Day of Procedure 10/26/25 10:13 Heart: regular rate and rhythm Lungs: clear to auscultation Airway: Mallampati scale class II Neurological: alert and oriented Last oral intake: >/= 8 hours ASA classification: II Emergent: no Anesthetic plan: proceed Anesthesia type and monitoring: monitored anesthesia care Results Review: All pre-operative results and documents have been reviewed as part of the pre-operative evaluation. Informed Consent: The patient's anesthetic plan and its attendant risks and benefits were discussed with the patient/family/POA. Questions were solicited and answers provided to the satisfaction of the patient/family/POA.
[2025-10-26 10:44] VITALS: BP 127/76; PULSE 74; RESP 18; O2SAT 95
--- NOTE | 2025-10-26 10:46 | WPDANESPN ---
Anes - Prog Note Post-Op Date/Time: 10/26/25 10:46 Cardiovascular status: normal Respiratory status: normal Airway patency: baseline Mental status: baseline Post-Op hydration status: normal Vital Signs: Last Vital Signs Temp 37.2 C 10/26/25 08:56 Pulse 87 10/26/25 08:56 Resp 18 10/26/25 08:56 BP 156/116 H 10/26/25 08:56 Pulse Ox 98 10/26/25 08:56 O2 Del Method Room Air 10/26/25 08:56 Pain Score (VAS): 0 I/O: Intake & Output 10/25/25 10/26/25 10/26/25 23:59 07:59 15:59 Intake Total 0 Balance 0 Patient Feedback: Patient satisfied with anesthetic care.
[2025-10-26 10:54] VITALS: BP 116/90; PULSE 82; RESP 16; O2SAT 98
[2025-10-26 11:04] VITALS: BP 136/93; PULSE 70; RESP 18; O2SAT 97
== END 2025-10-26 11:10 | disposition home or self-care (01) ==
PROVIDERS: PCP Family Medicine; Visit Provider Internal Medicine Gastroenterology
PROC: 0DJD8ZZ Inspection of Lower Intestinal Tract, Via Natural or Artificial Opening Endoscopic (ICD-10-PCS; CPT 45378; principal; 2025-10-26 10:00)
DX: Z12.11 Encounter for screening for malignant neoplasm of colon (principal); D12.3 Benign neoplasm of transverse colon; K64.8 Other hemorrhoids; K63.5 Polyp of colon
CPT/HCPCS: 45385

== ENCOUNTER 2025-10-26 11:51 | Outpatient (NON) | payer OTHER, SELFPAY ==
--- NOTE | 2025-10-26 | S_PTH ---
PATIENT: Garo Andrew LOC: [facility] U#:[id number] AGE/SX: 45/M ROOM: RE10/26/[address]: Jace Tafoya MD : 1980 BED: DIS: 10/26/2025 SPEC #: [id number] RECD: 10/28/25 14:01 STATUS: CRISTINA RERoxanna #: [id number] ARMANDO: 10/26/25 00:[address]: Jace Tafoya DEPT: [facility] Surgical RECD BY: Parris Centeno ENTERED: 10/28/25 14:02 SP TYPE: Surgical OTHR DR: Philip Lutz MD Tissues: A - Colon Polypectomy Procedures: Hematoxylin and Eosin Stain Gross and Microscopic Level 4
== END 2025-10-26 11:52 | disposition home or self-care (01) ==
PROVIDERS: PCP Family Medicine; Visit Provider Internal Medicine Gastroenterology
DX: Z12.11 Encounter for screening for malignant neoplasm of colon (principal); D12.3 Benign neoplasm of transverse colon; K63.5 Polyp of colon
CPT/HCPCS: 88305